=== PATIENT | female | born 1975 | race Caucasian/White ===

== ENCOUNTER 2017-06-03 20:45 | Emergency (ER) | payer MEDICAID ==
[~2017-06-03] VITALS: Ht 154.9 cm; Wt 99.4 kg
[~2017-06-03 20:45] MED LIST: CLIN-79 PO; HYDR28CR14 TOP; METH4TAB3 PO; NAPR-1154 PO; NO HOME MEDS; PRED10TA PO; PRED50TA PO
[2017-06-03 21:27] LABS: BASOPHILS % (AUTO) 0.2 % (0-1); EOSINOPHILS % (AUTO) 0.2 % (0-6); HEMATOCRIT 36.4 % (35.0-45.0); HEMOGLOBIN 12.5 g/dl (12.0-16.0); LYMPHOCYTES # (AUTO) 0.7 X10'3 (1.1-4.8); LYMPHOCYTES % (AUTO) 5.9 % (21-51); MEAN CORPUSCULAR HEMOGLOBIN 30.7 PG (27.0-31.0); MEAN CORPUSCULAR HGB CONC 34.4 % (33.0-36.5); MEAN CORPUSCULAR VOLUME 89.3 FL (78-98); MEAN PLATELET VOLUME 8.2 FL (7.4-10.4); MONOCYTES # (AUTO) 0.6 X10'3 (0-0.9); MONOCYTES % (AUTO) 5.4 % (2-12); NEUTROPHILS # (AUTO) 9.8 X10'3 (1.8-7.7); NEUTROPHILS % (AUTO) 88.3 % (42-75); PLATELET COUNT 206 X10'3 (140-440); RED BLOOD COUNT 4.07 X10'6 (4.20-5.60); RED CELL DISTRIBUTION WIDTH 14.7 % (11.5-14.5); WHITE BLOOD COUNT 11.1 X10'3 (4.5-11.0)
[2017-06-03 21:49] LABS: ALANINE AMINOTRANSFERASE 31 U/L (12-78); ALBUMIN 3.6 G/DL (3.4-5.0); ALBUMIN/GLOBULIN RATIO 0.9 (1.1-1.5); ALKALINE PHOSPHATASE 92 IU/L (46-116); ANION GAP 10 (8-16); ASPARTATE AMINO TRANSFERASE 20 U/L (10-37); BILIRUBIN,TOTAL 0.6 MG/DL (0.1-1.0); BLOOD UREA NITROGEN 5 MG/DL (7-18); BUN/CREATININE RATIO 5.6 (6.6-38.0); CALCIUM 8.5 MG/DL (8.5-10.1); CHLORIDE 101 MMOL/L (99-107); CREATININE 0.89 MG/DL (0.40-0.90); GLUCOSE 158 MG/DL (70-104); SODIUM 135 MMOL/L (135-145); TOTAL CARBON DIOXIDE 23.6 MMOL/L (24-32); TOTAL PROTEIN 7.4 G/DL (6.4-8.2); eGFR 70 ML/MIN
[2017-06-03 21:54] LABS: POTASSIUM 2.9 MMOL/L (3.5-5.1)
[2017-06-03] MEDS ORDERED: TAM75C PO (22:54)
[2017-06-03] MEDS ORDERED: potassium Cl oral solution 20 MEQ/15 ML PO ONE (22:55)
[2017-06-03] MEDS ORDERED: GUAI10SY2 PO (23:03)
[2017-06-04 00:28] VITALS: BP 136/86
== END 2017-06-04 00:30 | disposition home or self-care (01) ==
LOC: ER 20:46
DX: B34.9 Viral infection, unspecified (principal); E87.6 Hypokalemia
CPT/HCPCS: 36415; 71045; 80053; 83605; 85025; 87040; 99285

== ENCOUNTER 2017-08-16 15:16 | Emergency (ER) | payer MEDICAID ==
[~2017-08-16] VITALS: Ht 154.9 cm; Wt 90.9 kg
[2017-08-16 15:28] VITALS: BP 145/79
[2017-08-16 15:43] LABS: URINE HCG NEGATIVE (NEG)
[2017-08-16 15:59] LABS: CLARITY,URINE CLOUDY (Clear); COLOR,URINE YELLOW (Yellow); GLUCOSE, URINE NEGATIVE (Neg); KETONES,URINE NEGATIVE (Neg); LEUKOCYTE ESTERASE ,URINE MODERATE (Neg); NITRITES, URINE POSITIVE (Neg); OCCULT BLOOD,URINE LARGE (Neg); PROTEIN,URINE 30 mg/dl (Neg); UROBILINOGEN,URINE 0.2 E.U/dL (0.2-1.0)
[2017-08-16 16:13] LABS: UA COLLECTION TYPE CLN CATCH MIDSTREAM
[2017-08-16 16:16] LABS: BACTERIA,URINE FEW /HPF (Neg); MUCUS STRANDS FEW /LPF (Neg); RBC,URINE 20-50 /HPF (0-2); SQUAMOUS EPITHELIAL CELL,UR MANY /LPF (FEW); TRICHOMONAS,URINE FEW /HPF (NEGATIVE); WBC,URINE TNTC /HPF (0-4)
[2017-08-16] MEDS ORDERED: SULF1TAB49 PO (16:18)
[2017-08-16] MEDS ORDERED: PHEN-716 PO (16:18)
== END 2017-08-16 16:27 | disposition home or self-care (01) ==
LOC: ER 15:17
DX: N39.0 Urinary tract infection, site not specified (principal); F15.10 Other stimulant abuse, uncomplicated; Z56.0 Unemployment, unspecified; Z79.899 Other long term (current) drug therapy
CPT/HCPCS: 81001; 81025; 99284

== ENCOUNTER 2018-02-28 18:20 | Emergency (ER) | payer MEDICAID ==
[~2018-02-28] VITALS: Ht 154.9 cm; Wt 99.9 kg
[~2018-02-28 18:20] MED LIST changes: -CLIN-79 PO; +CLIN150C8 PO; +PHEN-716 PO
[2018-02-28] MEDS ORDERED: SULF1TAB49 PO (18:52)
[2018-02-28 19:11] VITALS: BP 122/79
== END 2018-02-28 19:13 | disposition home or self-care (01) ==
LOC: ER 18:21
DX: L03.115 Cellulitis of right lower limb (principal); F15.90 Other stimulant use, unspecified, uncomplicated; F17.200 Nicotine dependence, unspecified, uncomplicated; Z88.6 Allergy status to analgesic agent; Z88.2 Allergy status to sulfonamides; Z79.899 Other long term (current) drug therapy; Z56.0 Unemployment, unspecified
CPT/HCPCS: 99283

== ENCOUNTER 2018-04-10 17:53 | Emergency (ER) | payer MEDICAID ==
[~2018-04-10] VITALS: Ht 154.9 cm; Wt 101.3 kg
[2018-04-10 18:19] VITALS: BP 142/96
[2018-04-10] MEDS ORDERED: PRED10TA23 PO (19:01)
== END 2018-04-10 19:10 | disposition home or self-care (01) ==
LOC: ER 17:54
DX: L23.7 Allergic contact dermatitis due to plants, except food (principal); F15.90 Other stimulant use, unspecified, uncomplicated; F17.200 Nicotine dependence, unspecified, uncomplicated; Z88.6 Allergy status to analgesic agent; Z88.2 Allergy status to sulfonamides; Z79.899 Other long term (current) drug therapy; Z56.0 Unemployment, unspecified
CPT/HCPCS: 99283

== ENCOUNTER 2018-09-17 18:43 | Emergency (ER) | payer MEDICAID ==
[~2018-09-17] VITALS: Ht 154.9 cm; Wt 97.0 kg
[~2018-09-17 18:43] MED LIST changes: +CEPH-571 PO
[2018-09-17 20:15] VITALS: BP 143/89
[2018-09-17] MEDS ORDERED: famotidine 20mg tablet PO ONE (20:20)
[2018-09-17] MEDS ORDERED: FAMO-128 PO (20:31)
[2018-09-17] MEDS ORDERED: PRED20TA PO (20:31)
== END 2018-09-17 20:41 | disposition home or self-care (01) ==
LOC: ER 18:44
DX: L23.7 Allergic contact dermatitis due to plants, except food (principal); F15.90 Other stimulant use, unspecified, uncomplicated; Z88.5 Allergy status to narcotic agent; Z79.899 Other long term (current) drug therapy; Z56.0 Unemployment, unspecified
CPT/HCPCS: 99283